=== PATIENT | female | born 1995 | race American Indian/Alaskan Native ===

== ENCOUNTER 2019-04-26 11:46 | Outpatient (CLI) | payer OTHER | END 2019-04-26 18:49 | disposition home or self-care (01) | LOC: OBS/DEL 11:46 | DX: O26.842 Uterine size-date discrepancy, second trimester (principal) ==

== ENCOUNTER 2019-05-17 09:39 | Outpatient (CLI) | payer OTHER ==
[2019-05-17] MEDS ORDERED: PRENATAL 19 TA1 EACH PO (10:17)
== END 2019-05-17 22:03 | disposition home or self-care (01) ==
LOC: OBS/DEL 09:39
DX: O26.842 Uterine size-date discrepancy, second trimester (principal); O23.42 Unspecified infection of urinary tract in pregnancy, second trimester; O42.912 Preterm premature rupture of membranes, unspecified as to length of time between rupture and onset of labor, second trimester; O34.212 Maternal care for vertical scar from previous cesarean delivery

== ENCOUNTER 2019-06-12 10:31 | Outpatient (CLI) | payer OTHER ==
[~2019-06-12] VITALS: Ht 152.4 cm; Wt 75.7 kg
[~2019-06-12 10:31] MED LIST: PRENATAL 19 TA1 EACH PO
[2019-06-12] MEDS ORDERED: PRENATAL TABLE1 EACH PO (11:13)
== END 2019-06-12 20:29 | disposition home or self-care (01) ==
LOC: OBS/DEL 10:31
DX: O26.843 Uterine size-date discrepancy, third trimester (principal); O26.893 Other specified pregnancy related conditions, third trimester; O60.03 Preterm labor without delivery, third trimester; R10.2 Pelvic and perineal pain; Z22.330 Carrier of Group B streptococcus

== ENCOUNTER 2019-07-12 12:39 | Inpatient (IN) | payer OTHER ==
[~2019-07-12] VITALS: Ht 157.5 cm; Wt 81.6 kg
[~2019-07-12 12:39] MED LIST changes: +PRENATAL TABLE1 EACH PO
== END 2019-07-15 16:12 | DRG 783 ==
LOC: OB/GYN 12:39 → LDR 12:39 → O/R 14:28 → OB/GYN 17:28
PROVIDERS: ADMIT Obstetrics & Gynecology
PROC: 0UB70ZZ Excision of Bilateral Fallopian Tubes, Open Approach (ICD-10-PCS; 2019-07-12)
PROC: 4A1HXCZ Monitoring of Products of Conception, Cardiac Rate, External Approach (ICD-10-PCS; 2019-07-12)
PROC: 4A033R1 Measurement of Arterial Saturation, Peripheral, Percutaneous Approach (ICD-10-PCS; 2019-07-12)
PROC: 10D00Z1 Extraction of Products of Conception, Low, Open Approach (ICD-10-PCS; principal; 2019-07-12 13:15)
DX: O82 Encounter for cesarean delivery without indication (principal); O60.14X0 Preterm labor third trimester with preterm delivery third trimester, not applicable or unspecified; O34.211 Maternal care for low transverse scar from previous cesarean delivery; Z30.2 Encounter for sterilization; Z37.0 Single live birth; Z3A.35 35 weeks gestation of pregnancy; Z22.330 Carrier of Group B streptococcus

== ENCOUNTER 2021-11-07 21:39 | Emergency (ER) | payer OTHER ==
[~2021-11-07] VITALS: Ht 157.5 cm; Wt 72.6 kg
[2021-11-08] MEDS ORDERED: IBU600 MG PO (23:03)
[2021-11-08] MEDS ORDERED: INTESTINEX680 M1 PO (23:03)
[2021-11-08] MEDS ORDERED: CLINDAMYCIN HC300 MG PO (23:03)
[2021-11-08] MEDS ORDERED: MUPIROCIN15 GM TOP (23:03)
== END 2021-11-08 01:01 | disposition home or self-care (01) ==
LOC: ER 21:39
DX: U07.1 COVID-19 (principal); Z91.013 Allergy to seafood

== ENCOUNTER 2021-11-08 21:38 | Emergency (ER) | payer OTHER ==
[~2021-11-08] VITALS: Ht 157.5 cm; Wt 72.6 kg
[2021-11-08] MEDS ORDERED: INTESTINEX680 M1 PO (23:03)
[2021-11-08] MEDS ORDERED: MUPIROCIN15 GM TOP (23:03)
[2021-11-08] MEDS ORDERED: IBU600 MG PO (23:03)
[2021-11-08] MEDS ORDERED: CLINDAMYCIN HC300 MG PO (23:03)
== END 2021-11-08 23:13 ==
LOC: ER 21:38
DX: N61.0 Mastitis without abscess (principal); U07.1 COVID-19; Z98.890 Other specified postprocedural states; Z91.013 Allergy to seafood